=== PATIENT | male | born 1980 | race Caucasian/White ===

== ENCOUNTER 2016-07-28 15:25 | Emergency (ER) | payer MEDICARE ==
[2016-07-28] MEDS ORDERED: PROCHLORPERAZINE EDISYLATE INJ 10 MG/2 ML VIAL IM ONE (16:13)
[2016-07-28] MEDS ORDERED: ACETAMINOPHEN 325 MG TABLET PO ONE (16:13)
--- NOTE | 2016-07-28 16:13 | ER Document Report ---
ED Medical Screen (RME) - General Stated Complaint: HEADACHE/POSSIBLE MIGRAINE Notes: patient has a h/o h/i about one month ago work injury that had scaffolding collapse on his head with positive LOC patient cannot say what workup he had, has been evaluated by his PCP for wound care patient states his current headache has been for the past 3 days. denies photophobia, light sensitivity, admits to nausea I have greeted and performed a rapid initial assessment of this patient. A comprehensive ED assessment and evaluation of the patient, analysis of test results and completion of the medical decision making process will be conducted by additional ED providers. TRAVEL OUTSIDE OF THE [place] IN LAST 30 DAYS: No - Related Data Allergies/Adverse Reactions: No Known Allergies Allergy (Unverified 07/28/16 16:07) Physical Exam - Vital signs Vitals: Temp Pulse Resp BP Pulse Ox 98.3 F 83 20 139/91 H 97 07/28/16 15:50 07/28/16 15:50 07/28/16 15:50 07/28/16 15:50 07/28/16 15:50 Course - Vital Signs Vital signs: Temp Pulse Resp BP Pulse Ox 98.3 F 83 20 139/91 H 97 07/28/16 15:50 07/28/16 15:50 07/28/16 15:50 07/28/16 15:50 07/28/16 15:50
[2016-07-28] MEDS ORDERED: DIPHENHYDRAMINE HCL 25 MG CAPSULE PO ONE (16:15)
[2016-07-28] MEDS ORDERED: PROCHLORPERAZINE MALEATE 10 MG TABLET PO ONE (16:25)
--- NOTE | 2016-07-28 17:05 | ER Document Report ---
ED Headache - General Mode of Arrival: Wheelchair Information source: Patient, Parent TRAVEL OUTSIDE OF THE [place] IN LAST 30 DAYS: No - HPI Patient complains to provider of: Headache Onset: Other - see HPI notes Quality of pain: Throbbing - and pounding Context: Head injury Associated symptoms: Lightheaded, Nausea/vomiting <CHEPEALEX - Last Filed: 07/28/16 17:05> <LORETO GOODRICH - Last Filed: 07/29/16 00:40> - General Chief Complaint: Headache Stated Complaint: HEADACHE/POSSIBLE MIGRAINE Notes: Patient is a 35 year old male presenting to the emergency department with complaints of a headache. Patient states his pain is to the top of his head surrounding a recent wound from an injury. Patient was scaffolding about 1 month ago when he "woke up in the dark" and is unsure if he fell off the scaffold or the scaffold fell on top of him. Patient states he does not remember going to an ED after the incident, but states he might have. Patient states he was in [facility] when the incident occurred. Patient states he doesn't remember anything about the accident but that he remembers "walking through a field and up to his parent's house." Patient states he also remembers his "mother cleaning up his wound on his head." Patient states he is sure that he blacked out during the incident. Patient is unsure if he had a CT scan done on his head. Patient's headache was onset 3 days ago and has had difficulty remembering what is going on as well as past events. Patient states his head is "pounding." Patient's father is present with him and states he drove into town on Sunday. Patient's father states he has been eating and drinking fluids regularly since he has been with him. Patient's father has been driving the patient to appointments. Patient is nauseous and states his pain has not been relieved by the medications given at triage. Patient states he has been trying to see his PCP but that she is out of town currently. Patient went to the wound care clinic to get his head wound bandaged this afternoon; patient then came over to the emergency department. Patient has no history of migraines or headaches, patient states he has a history of back surgery. Patient is oriented to year, month, day and president. Patient has no known allergies. ( ALEX MO) - Related Data Allergies/Adverse Reactions: No Known Allergies Allergy (Unverified 07/28/16 16:07) Past Medical History - General Information source: Patient - Social History Smoking Status: Never Smoker Cigarette use (# per day): No Chew tobacco use (# tins/day): No Frequency of alcohol use: None Drug Abuse: None Family History: None Patient has suicidal ideation: No Patient has homicidal ideation: No Past Surgical History: Reports: Hx Orthopedic Surgery - back sx <ALEX MO - Last Filed: 07/28/16 17:05> Review of Systems - Review of Systems Constitutional: No symptoms reported EENT: No symptoms reported Cardiovascular: No symptoms reported Respiratory: No symptoms reported Gastrointestinal: No symptoms reported Genitourinary: No symptoms reported Male Genitourinary: No symptoms reported Musculoskeletal: No symptoms reported Skin: See HPI Hematologic/Lymphatic: No symptoms reported Neurological/Psychological: See HPI, Headaches -: Yes All other systems reviewed and negative <ALEX MO - Last Filed: 07/28/16 17:05> Physical Exam - Vital signs Interpretation: Normal - General General appearance: Appears well, Alert In distress: Mild - HEENT Head: Normocephalic, Other - wound to top front of head Eyes: Normal Pupils: PERRL Mucous membranes: Moist - Respiratory Respiratory status: No respiratory distress Chest status: Nontender Breath sounds: Normal Chest palpation: Normal - Cardiovascular Rhythm: Regular Heart sounds: Normal auscultation Murmur: No - Abdominal Inspection: Normal Distension: No distension Bowel sounds: Normal Tenderness: Nontender Organomegaly: No organomegaly - Back Back: Normal, Nontender - Extremities General upper extremity: Normal inspection, Normal ROM, Normal strength General lower extremity: Normal inspection, Normal ROM, Normal strength - Neurological Neuro grossly intact: Yes Cognition: Other - patient is having difficulty remembering Orientation: AAOx4 Independence Coma Scale Eye Opening: Spontaneous Independence Coma Scale Verbal: Oriented Irving Coma Scale Motor: Obeys Commands Irving Coma Scale Total: 15 - Psychological Associated symptoms: Normal affect, Normal mood - Skin Skin Temperature: Warm Skin Moisture: Dry <ALEX MO - Last Filed: 07/28/16 17:05> <LORETO GOODRICH - Last Filed: 07/29/16 00:40> - Vital signs Vitals: Temp Pulse Resp BP Pulse Ox 98.3 F 83 20 139/91 H 97 07/28/16 15:50 07/28/16 15:50 07/28/16 15:50 07/28/16 15:50 07/28/16 15:50 (ALEX MO) (LORETO GOODRICH) Course <ALEX MO - Last Filed: 07/28/16 17:05> - Laboratory Result Diagrams: 07/28/16 21:20 07/28/16 21:20 - Diagnostic Test Radiology reviewed: Reports reviewed <LORETO GOODRICH - Last Filed: 07/29/16 00:40> - Re-evaluation Re-evalutation: 07/28/16 18:52 Patient is a 35-year-old male who comes In complaining of right-sided headache. Patient was given medications did not help his headache. Patient states that he feels that his vision is blurred and is like someone is stabbing him in the right side of his head. MRI/MRA be ordered. 07/28/16 22:05 Patient with thrombosis of right transverse sinus. Call placed to [facility] to discuss with neurosurgery. Discussed with patient who agrees with transfer 07/28/16 22:35 Called back to [facility]. Patient needs to be discussed with neurology and they're paging of service. 22:[address] Smith with neurology here. No answer. Inform no neurology available over the weekend. 07/29/16 23:00 Discussed with neurologist, Dr. Delgado . Patient can be started on heparin drip. He has looked at the images. Neurology is not on over the weekend. States that they will be available for consult at [facility] over the phone. Patient should be bridged to Coumadin and be on for at least 6 months. No neurologic deficits. No acute findings on MRI. Discussed with patient who agrees with admission 07/29/16 23:[address] Charles. Uncomfortable with admission due to possibility of bleeding, no neurology to follow patient over the weekend. Call placed back to [facility]. 07/29/16 23:40 Call back from hospitalist at [facility], . Recommend starting the patient on heparin drip and will except to 3 N. 02/11/17 00:00 Patient will be transferred to [facility]. No beds available tonight. Patient is on heparin drip. His pain is controlled this time. Patient does not have any weakness or decreased sensation. He is resting comfortably at this time. Patient is very grateful for care. He'll be signed out to the overnight associate hospitalist Stable at time of transfer call. (LORETO GOODRICH) - Vital Signs Vital signs: Temp Pulse Resp BP Pulse Ox 98.3 F 83 20 139/91 H 97 07/28/16 15:50 07/28/16 15:50 07/28/16 15:50 07/28/16 15:50 07/28/16 15:50 (ALEX MO) (LORETO GOODRICH) - Laboratory Laboratory results interpreted by me: 07/28/16 07/28/16 21:20 21:20 RBC 4.24 L Hgb 12.8 L Hct 36.3 L Plt Count 149 L Alkaline Phosphatase 36 L Total Protein 6.2 L Albumin 3.3 L Critical Care Note - Critical Care Note Total time excluding time spent on procedures (mins): 120 - evaluation and management of headache with multiple re-evaluations, diagnosis of venous thrombosis, consultation with neurologist, consultation with hospitalist, consultation with tertiary care center, coordination or transfer, counseling of patient <LORETO GOODRICH - Last Filed: 07/29/16 00:40> Discharge <ALEX MO - Last Filed: 07/28/16 17:05> <LORETO GOODRICH - Last Filed: 07/29/16 00:40> - Discharge Clinical Impression: Transverse sinus thrombosis, Postconcussion syndrome Headache Qualifiers: Headache type: unspecified Headache chronicity pattern: unspecified pattern Intractability: not intractable Qualified Code(s): R51 - Headache Condition: Stable Disposition: [facility] Referrals: MYRIAM MORENO I, DO [Primary Care Provider] - Follow up as needed Scribe Attestation: 07/29/16 00:40 I personally performed the services described in the documentation, reviewed and edited the documentation which was dictated to the scribe in my presence, and it accurately records my words and actions. (LORETO GOODRICH) Scribe Documentation - Scribe Written by Scribe:: Alex Mo 07/28/16 17:40 acting as scribe for :: Len <ALEX MO - Last Filed: 07/28/16 17:05>
[2016-07-28] MEDS ORDERED: NORMAL SALINE 1000 ML 1,000 ML IV ONE (17:10)
[2016-07-28] MEDS ORDERED: DIVALPROEX SODIUM 250 MG TAB.SR.24H PO SCH (18:00)
[2016-07-28] MEDS ORDERED: DIAZEPAM INJ 10 MG/2 ML DISP.SYRIN IV ONE (18:36)
[2016-07-28] MEDS ORDERED: METHOCARBAMOL INJ/PF 1000 MG/10 ML SDV IV ONE (18:36)
[2016-07-28] MEDS ORDERED: ONDANSETRON HCL INJ/PF 4 MG/2 ML SDV IV ONE ×2 (18:36→23:09)
[2016-07-28] MEDS ORDERED: MORPHINE SULFATE 10 MG/ML INJ IV ONE ×2 (20:15→23:09)
[2016-07-28] MEDS ORDERED: HYDROXYZINE PAMOATE 50 MG CAPSULE PO ONE (21:08)
[2016-07-28] MEDS ORDERED: CLONIDINE HCL 0.1 MG TABLET PO ONE (21:08)
[2016-07-28 21:30] LABS: ABSOLUTE EOSINOPHILS # (AUTO) 0.1 10^3/uL (0.0-0.6); ABSOLUTE LYMPHOCYTES (AUTO) 1.8 10^3/uL (0.5-4.7); ABSOLUTE MONOCYTES (AUTO) 0.4 10^3/uL (0.1-1.4); ABSOLUTE NEUT (AUTO) 3.3 10^3/uL (1.7-8.2); BASOPHILS % (AUTO) 0.5 % (0-2); HEMATOCRIT 36.3 % (37.9-51.0); HEMOGLOBIN 12.8 g/dL (13.5-17.0); HGB HCT DIFFERENCE 2.1; LYMPHOCYTES % (AUTO) 32.3 % (13-45); MEAN CORPUSCULAR HEMOGLOBIN 30.3 pg (27.0-33.4); MEAN CORPUSCULAR HGB CONC 35.4 g/dL (32.0-36.0); MEAN CORPUSCULAR VOLUME 86 fl (80-97); MONOCYTES % (AUTO) 7.3 % (3-13); RED BLOOD COUNT 4.24 10^6/uL (4.35-5.55); RED CELL DISTRIBUTION WIDTH 13.5 % (11.5-14.0); SEGMENTED NEUTROPHILS % (AUTO) 57.9 % (42-78); WHITE BLOOD COUNT 5.7 10^3/uL (4.0-10.5)
[2016-07-28 21:37] LABS: PROTHROMBIN TIME 13.6 SEC (11.4-15.4)
[2016-07-28 21:38] LABS: PARTIAL THROMBOPLASTIN TIME 31.7 SEC (23.5-35.8)
[2016-07-28 21:50] LABS: ALANINE AMINOTRANSFERASE 22 U/L (21-72); ALBUMIN 3.3 g/dL (3.5-5.0); ALKALINE PHOSPHATASE 36 U/L (38-126); ANION GAP 6 (5-19); ASPARTATE AMINO TRANSFERASE 17 U/L (17-59); BILIRUBIN,TOTAL 0.4 mg/dL (0.2-1.3); BLOOD UREA NITROGEN 13 mg/dL (7-20); CALCIUM 8.5 mg/dL (8.4-10.2); CARBON DIOXIDE 30 mmol/L (22-30); CHLORIDE 107 mmol/L (98-107); CREATININE RESULT 0.98 mg/dL (0.52-1.25); GLUCOSE 85 mg/dL (75-110); POTASSIUM 4.3 mmol/L (3.6-5.0); SODIUM 142.7 mmol/L (137-145); TOTAL PROTEIN 6.2 g/dL (6.3-8.2)
[2016-07-28] MEDS ORDERED: HEPARIN SODIUM,PORCINE/D5W 250 ML IV PRN (22:30)
[2016-07-29] MEDS ORDERED: ONDANSETRON HCL INJ/PF 4 MG/2 ML SDV IV PRN (00:41)
[2016-07-29] MEDS: PREGABALIN 75 MG CAPSULE PO PRN ×2 (01:52→16:13)
[2016-07-29] MEDS: MORPHINE SULFATE 10 MG/ML INJ IV PRN ×4 (04:23→17:47)
[2016-07-29] MEDS: CLONAZEPAM 1 MG TABLET PO PRN ×2 (06:09→20:45)
[2016-07-29 08:04] LABS: APPEARANCE,URINE CLEAR; BILIRUBIN,URINE NEGATIVE (NEGATIVE); GLUCOSE, URINE NEGATIVE (NEGATIVE); KETONES,URINE NEGATIVE (NEGATIVE); LEUKOCYTE ESTERASE,URINE NEGATIVE (NEGATIVE); NITRITE,URINE NEGATIVE (NEGATIVE); PROTEIN,URINE NEGATIVE (NEGATIVE); URINE SPECIFIC GRAVITY 1.005; UROBILINOGEN,URINE NEGATIVE mg/dL (<2.0)
[2016-07-29 08:18] LABS: URINE BARBITURATES SCREEN NEGATIVE; URINE METHADONE SCREEN NEGATIVE; URINE OPIATES LOW UNCONFIRMED POSITIVE; URINE PHENCYCLIDINE SCREEN NEGATIVE
[2016-07-29] MEDS ORDERED: THYROID (PORK) 60 MG TABLET PO SCH (10:00)
[2016-07-29] MEDS ORDERED: CLONIDINE HCL 0.1 MG TABLET PO SCH (10:00)
--- NOTE | 2016-07-29 14:59 | ER Document Report ---
Doctor's Note Notes: 07/29/16 14:59 Patient evaluated. This time no complaints. Still currently waiting for a hospital bed at [facility]
[2016-07-29] MEDS ORDERED: NICOTINE 14 MG/24 HR PATCH.TD24 TD ONE (19:17)
--- NOTE | 2016-07-29 19:19 | ER Document Report ---
Doctor's Note Notes: 07/29/16 19:18 The patient continues to wait on bed availability at [facility]. Earlier he was requesting more pain medication stating morphine was not really helping. Review of the [place] controlled substance reporting system shows the patient has been prescribed narcotics for quite some time including fentanyl patches. He was given the gabapentin that had been ordered previously for this pain. He is now requesting a nicotine patch. Given his diagnosis, nicotine is probably not the best medication to be giving him, however due to his smoking history and other issues, the nicotine patch is probably better than dealing with his nicotine withdrawal anxiety and pain issues. 07/29/16 20:48 Transport has arrived to take the patient to [facility]. His vital signs are stable, he has no complaints at this time.
[2016-07-29 20:51] VITALS: BP 118/78
== END 2016-07-29 21:02 | disposition short-term general hospital (02) ==
LOC: ER 15:25
DX: G08 Intracranial and intraspinal phlebitis and thrombophlebitis (principal); R51 Headache; R42 Dizziness and giddiness; H53.8 Other visual disturbances; R11.2 Nausea with vomiting, unspecified; R41.3 Other amnesia; F07.81 Postconcussional syndrome; Z75.1 Person awaiting admission to adequate facility elsewhere
CPT/HCPCS: 96376; 99291; 99292; 96374; 96375; 36415; 85025; 85610; 85730; 80053; 81001; 80307; 70551; 70544; 70450; A9270 ×10; J1644; J3360; J2800; J2270 ×2; J2405 ×2; J3490; S0183